=== PATIENT | male | born 1955 | race Caucasian/White ===

== ENCOUNTER 2018-01-23 05:49 | Inpatient (IN) | payer OTHER ==
[2018-01-18 12:55] LABS: URINE BILIRUBIN NEGATIVE (Negative); URINE BLOOD NEGATIVE (Negative); URINE CLARITY CLEAR; URINE COLOR YELLOW; URINE GLUCOSE-RANDOM* NEGATIVE (Negative); URINE KETONES NEGATIVE (Negative); URINE LEUKOCYTES-REFLEX NEGATIVE (Negative); URINE NITRITE-REFLEX NEGATIVE (Negative); URINE PROTEIN (DIPSTICK) NEGATIVE (Negative); URINE UROBILINOGEN 0.2 E.U./dl (0.2-1.0)
[2018-01-18 12:56] LABS: HEMATOCRIT 44.9 % (42.0-52.0); HEMOGLOBIN 15.5 gm/dL (14.0-18.0); MCH 34.9 pg (26.0-34.0); MCHC 34.5 g/dL (28.0-37.0); MCV 101.1 fL (80.0-100.0); RBC 4.44 mil/uL (4.50-6.00); RDW 12.8 % (10.5-14.5); WBC 6.6 thou/uL (4.0-11.0)
[2018-01-18 13:15] LABS: ALBUMIN 2.8 g/dL (3.4-5.0); CALCIUM 9.2 mg/dL (8.5-10.1); CREATININE 0.8 mg/dL (0.7-1.3); INR 1.2; POTASSIUM 4.1 mmol/L (3.5-5.1)
[2018-01-23] VITALS (10 sets, daily range): BP systolic 129–176; BP diastolic 56–88
[~2018-01-23] VITALS: Ht 180.3 cm; Wt 129.0 kg
--- NOTE | ~2018-01-23 | O ---
[facility] [place] [address] OPERATIVE REPORT Name: MIKAELA ANAYA Room #: 453-P [facility] IN M.R.#: [id number] Admission: 01/23/18 Attend Phys: Emmanuel Raymond MD Discharge: Date of : 53 Report #: [id number] THIS REPORT FOR: //name// CC: Emmanuel Sutton DATE OF SERVICE: 01/23/2018 PREOPERATIVE DIAGNOSIS: End-stage degenerative osteoarthritis, left knee. POSTOPERATIVE DIAGNOSIS: End-stage degenerative osteoarthritis, left knee. PROCEDURE: Left total knee arthroplasty. SURGEON: Emmanuel Raymond MD INDICATIONS: This heavy deconditioned 62-year-old gentleman has problems with progressive degenerative osteoarthritis of the left knee. He has tried conservative measure without benefit. He has elected to go ahead with left total knee arthroplasty. He and his understand well that he is at some increased risk given his weight, deconditioned state and excessive alcohol use. He has been cleared by his primary care physician and seems to be an acceptable candidate for surgery despite these comorbidity problems. DESCRIPTION OF PROCEDURE: The patient was taken to the Operating Room where he was placed under general anesthesia. Prophylactic intravenous antibiotics were administered. The left knee and leg were meticulously prepped and draped and a thigh tourniquet applied and inflated to 300 mmHg. An anterior longitudinal skin incision was made and carried through the medial retinaculum. The patella was reflected laterally. Marked degenerative change in all 3 compartments was noted. The Lugo and Nephew knee system was utilized and intramedullary guides were used on both the femur and the tibia. The femur was best suited for a size 6 left femoral component and the tibia also for a size 6 tibial baseplate. Appropriate cuts were made to correct his mild preoperative flexion contracture. The patellar surface was resected and a 38 mm patellar button seemed to fit most appropriately. Appropriate anchor holes were created. The knee was reduced and a 10 mm polyethylene insert fit nicely resulting in full knee extension and good stability throughout a full arc of motion. The trial components were removed. The surfaces were thoroughly irrigated and dried. The intramedullary canal was blocked with a bone block on both the femoral and tibial sides. Methyl methacrylate cement was mixed and injected into the porous surface of the proximal tibia. The Lugo and Nephew size 6 Fay II left tibial baseplate was then applied. It was impacted into position and seated nicely. Excess cement was removed around its margin. A 10 mm polyethylene cruciate retaining Legion liner was then inserted. This was snapped into position and seated nicely and appeared to be secure. A size [address] [address] OPERATIVE REPORT Name: MIKAELA ANAYA A Room #: 453-P [facility] IN .R.#: [id number] Admission: 01/23/18 Attend Phys: Emmanuel Raymond MD Discharge: Date of : 53 Report #: [id number] cruciate retaining femoral component was impacted on the distal femur. It seated nicely and appeared to be secure. A 38 mm patellar button was cemented onto the patella with appropriate anchor holes. A patellar clamp was used until the cement had hardened. Alignment, range of motion and stability were assessed and felt to be satisfactory. The tourniquet was deflated after a total tourniquet time of 62 minutes. A single Hemovac was left in the wound exiting through a separate stab incision. The fascia was closed with multiple #1 Vicryl sutures. The subcutaneous tissues were closed with 0 Monocryl. The skin was closed with skin corona. A sterile dressing was applied. The patient was awakened and returned to Recovery Room in good condition. <ELECTRONICALLY SIGNED> By: Emmanuel Raymond MD 01/24/18 [id number] Emmanuel Raymond MD /nt
--- NOTE | ~2018-01-23 | D ---
[facility] [place] [address] DISCHARGE SUMMARY Name: MIKAELA ANAYA Room #: 224-P [facility] IN M.R.#: [id number] Admission: 01/23/18 Attend Phys: Emmanuel Raymond MD Discharge: 01/26/18 Date of : 53 Report #: [id number] THIS REPORT FOR: //name// CC: Emmanuel Sutton FINAL DIAGNOSIS: End-stage degenerative osteoarthritis, left knee. OPERATIONS AND PROCEDURES: Left total knee arthroplasty. HISTORY OF PRESENT ILLNESS: This 62-year-old heavy gentleman has severe left knee pain with findings consistent with severe chronic degenerative osteoarthritis. He has elected to go ahead with left total knee arthroplasty. HOSPITAL COURSE: The patient was admitted and taken to the operating room on 01/23/2018, he underwent left total knee arthroplasty, which he tolerated well. Postoperatively, his course was largely unremarkable. He was advanced from IV analgesics to oral analgesics. He advanced to regular diet. He did well with physical therapy and is now independent with ambulation. The dressing is dry and the wound appears to be healing nicely. He seems safe and ready for discharge on 01/26/2018. His final discharge medication include losartan 50 mg daily, Bystolic 10 mg daily, Pravachol 40 mg daily, hydrocodone 7.5/325 one q.4 hours p.r.n. for pain and aspirin 81 mg daily. He will continue independent exercise at home and begin outpatient therapy next week. I have asked him to call if any problems or questions and I will otherwise see him back in my office in 2 weeks for followup and suture removal. <ELECTRONICALLY SIGNED> By: Emmanuel Raymond MD 01/31/18 1412 1750 1814 Emmanuel Raymond MD /nt
[~2018-01-23 05:49] MED LIST: ACETAMINOPHEN-1 EAC1 PO; BYSTOLIC10 MG PO; LOSARTAN POTASS50 MG PO; PRAVACHOL40 MG PO; VOLTAREN GEL 1100 G1
[2018-01-24 04:23] LABS: HEMATOCRIT 39.9 % (42.0-52.0); HEMOGLOBIN 13.5 gm/dL (14.0-18.0); MCH 34.6 pg (26.0-34.0); MCHC 33.9 g/dL (28.0-37.0); MCV 102.2 fL (80.0-100.0); PLATELET COUNT 72 thou/uL (150-400); WBC 10.9 thou/uL (4.0-11.0)
[2018-01-24 04:36] LABS: CALCIUM 7.8 mg/dL (8.5-10.1); CREATININE 0.8 mg/dL (0.7-1.3); MAGNESIUM 1.3 mg/dL (1.8-2.4); POTASSIUM 3.9 mmol/L (3.5-5.1)
[2018-01-24 04:50] VITALS: BP 127/47
[2018-01-24 07:20] VITALS: BP 134/46
[2018-01-24 07:24] LABS: ABSOLUTE NEUTROPHILS 8.9 thou/uL (1.4-8.2); ANISOCYTOSIS SLIGHT
[2018-01-24 19:51] VITALS: BP 124/61
[2018-01-25 06:21] LABS: HEMOGLOBIN 12.9 gm/dL (14.0-18.0); MCH 35.8 pg (26.0-34.0); MCHC 34.9 g/dL (28.0-37.0); MCV 102.7 fL (80.0-100.0); RBC 3.6 mil/uL (4.50-6.00); RDW 12.9 % (10.5-14.5); WBC 9.6 thou/uL (4.0-11.0)
[2018-01-25 08:32] VITALS: BP 130/63; BP 172/68
[2018-01-25 16:02] VITALS: BP 131/51
[2018-01-25 19:54] VITALS: BP 130/78
[2018-01-26 07:37] LABS: HEMATOCRIT 35.8 % (42.0-52.0); HEMOGLOBIN 12.4 gm/dL (14.0-18.0); MCH 35.7 pg (26.0-34.0); MCHC 34.7 g/dL (28.0-37.0); MCV 102.8 fL (80.0-100.0); RBC 3.49 mil/uL (4.50-6.00); RDW 12.9 % (10.5-14.5); WBC 8.5 thou/uL (4.0-11.0)
[2018-01-26 07:40] VITALS: BP 124/52
== END 2018-01-26 13:09 | disposition home or self-care (01) | DRG 470 ==
LOC: 4W 05:49 → TBA 05:49 → PRE 05:50 → 4W 09:38 → PRE 12:21 → EDSTATUS 15:35 → OR 15:35 → PRE 15:41 → SICU 01-25 18:46 → ENTRNSPT 01-26 11:31 → EDTRNSPTSTS 01-26 11:36 → SICU 01-26 13:09
PROVIDERS: Nurse Practitioner; Orthopaedic Surgery
PROC: 0SRD0J9 Replacement of Left Knee Joint with Synthetic Substitute, Cemented, Open Approach (ICD-10-PCS; principal; 2018-01-23)
DX: M17.12 Unilateral primary osteoarthritis, left knee (principal); I10 Essential (primary) hypertension; D69.6 Thrombocytopenia, unspecified; E78.5 Hyperlipidemia, unspecified; Z79.899 Other long term (current) drug therapy; Z71.6 Tobacco abuse counseling
CPT/HCPCS: 10047; 15002; 50010; 50101; 50415; 50954; 51130; 51225; 51412; 51771; 53364; 56525; 57104; 57180; 62110; 62900; 70005

== ENCOUNTER → 2018-05-25 | Outpatient (CLI) | payer OTHER ==
[~2018-05-25] MED LIST changes: +NORCO 5-325 TA1 EACH PO
== END ==
LOC: RAD 11:35
DX: M47.26 Other spondylosis with radiculopathy, lumbar region (principal)

== ENCOUNTER 2018-05-27 14:42 | Emergency (ER) | payer OTHER ==
[~2018-05-27] VITALS: Ht 182.9 cm; Wt 99.8 kg
[~2018-05-27 14:42] MED LIST changes: -NORCO 5-325 TA1 EACH PO
[2018-05-27 14:47] VITALS: BP 168/65
[2018-05-27] MEDS ORDERED: NORCO 5-325 TA1 EACH PO (16:09)
== END 2018-05-27 16:22 | disposition home or self-care (01) ==
LOC: ER 14:42
DX: M54.16 Radiculopathy, lumbar region (principal); I10 Essential (primary) hypertension; E78.00 Pure hypercholesterolemia, unspecified; F17.210 Nicotine dependence, cigarettes, uncomplicated

== ENCOUNTER → 2018-05-31 | Outpatient (CLI) | payer OTHER ==
[~2018-05-31] MED LIST changes: +NORCO 5-325 TA1 EACH PO
== END ==
LOC: MRI 09:16
DX: M47.816 Spondylosis without myelopathy or radiculopathy, lumbar region (principal); M48.061 Spinal stenosis, lumbar region without neurogenic claudication; M79.605 Pain in left leg; I10 Essential (primary) hypertension; E78.5 Hyperlipidemia, unspecified; R20.0 Anesthesia of skin

== ENCOUNTER → 2018-06-06 | Outpatient (CLI) | payer OTHER ==
[~2018-06-06] VITALS: Ht 180.3 cm; Wt 124.7 kg
[~2018-06-06] MED LIST changes: +DICLOFENAC SOD100 GM TOP; +FLEXERIL PO; +FLOMAX0.4 MG PO; +NORCO 7.5-3251 EACH PO; +PREDNISONE 20 M20 MG PO; +TRAMADOL 50 MG50 MG PO; +TRAZODONE HCL50 MG PO
[2018-06-06 13:32] VITALS: BP 162/86
--- NOTE | 2018-06-06 13:52 | NUR ---
Pain Clinic Assessment: 1. History of Osteoarthritis: SPINE History of Rheumatoid Arthritis: Not Applicable 2. Height: 5 ft. 11 in. 180.3 cm. Weight: 275.0 lb. oz. 124.740 kg. Patient's BMI: 38.4 3. Vital Signs: BP: 162/86 Pulse: 56 Resp: 16 Temp: 02 Sat: 97 ECG Mon: 4. Pain Intensity: 10 5. Fall Risk: Dizziness: N Needs help standing or walking: Y Fallen in the last 3 months: N Fall risk comments: 6. Patient on Blood Thinner: None 7. History of Hypertension: Y 8. Opioid Therapy greater than 6 weeks: Y Opiate Contract Signed: 9. Risk Assessment Tool Provided: 10. Functional Assessment Tool: 59/70 11. Recreational Drug Use: Never Drug Type: Tobacco Use: Current Every Day Smoker Tobacco Type: Cigarettes Amount or Packs/day: 1 pack How Many Years: 8 Alcohol Use: Yes Frequency: Daily Quant: 3
--- NOTE | 2018-06-13 07:34 | HPC ---
[facility] [address] [place] [address] PAIN MANAGEMENT CONSULTATION Name: MIKAELA ANAYA A Room #: REG [facility]#: [id number] Admission: 06/06/18 ������������������ Attend Phys: Anibal Hamilton DO Discharge: ������������������ Date of : 53 Report #: [id number] THIS REPORT FOR: //name// CC: Anibal CORONA DATE OF SERVICE: 06/06/2018 REFERRING PHYSICIAN: CJ Moreno. CHIEF COMPLAINT: Low back pain and left lower extremity pain with paresthesias. HISTORY OF PRESENT ILLNESS: As you know, the patient is a 62-year-old male who reports a 2-week history of increasing low back pain, left lower extremity pain with paresthesias. He describes this pain as "debilitating." He sought evaluation through his primary care team who ultimately sent the patient for MRI of the lumbar spine. Findings were such that the patient was then referred to our clinic. He indicates that pain began spontaneously without inciting injury or trauma and has progressively worsened to the point where he can barely go about any activity of daily living. The patient indicates today his pain is continuous, describes the pain as shooting, numbness and tingling. Places current pain score 10/10, daily average at 10/10, worst the pain has been is 10/10. The patient indicates pain is exacerbated with "trying to walk." He states that his pain is improved with sitting. He has been referred to our service to discuss treatment options for suspected lumbar radiculopathy. PAST MEDICAL HISTORY: 1. Hypertension. 2. Osteoarthritis. 3. Tobacco habituation. PAST SURGICAL HISTORY: Total knee arthroplasty. SOCIAL HISTORY: The patient smokes 1-1/2 packs of tobacco per day. He has done so for greater than 10 years. He denies IV or illicit drug use. He admits to 30+ beer per week. He reports he is retired. He is not receiving workmen's compensation nor is he trying to obtain disability benefits. He is not in litigation in regards to pain. He is accompanied by his family member present in room today. REVIEW OF SYSTEMS: Positive for night sweats, fatigue, weakness, headaches, hypertension and tobacco habituation. All other review of systems negative per 12-point review of systems other than those listed in history of present [address] [address] PAIN MANAGEMENT CONSULTATION Name: MIKAELA ANAYA [facility] [id number] Admission: 06/06/18 ������������������ Attend Phys: Anibal Hamilton DO Discharge: ������������������ Date of : 53 Report #: [id number] illness. PAIN SCORE: Pain impact score 49/70 indicating [id number] interference of daily activities secondary to pain. ALLERGIES: No known drug allergies. CURRENT MEDICATIONS: Hydrocodone 7.5/325 one tab every 8 hours p.r.n. for pain, diclofenac sodium 1% gel apply topically up to 4 times a day, cyclobenzaprine 10 mg t.i.d., trazodone 50 mg 2 tabs p.o. at bedtime, tramadol 50 mg every 4 hours p.r.n. for pain, tamsulosin 0.4 mg once a day, prednisone 20 mg once a day, pravastatin 40 mg per day, Bystolic 10 mg per day, losartan 50 mg per day and Advil 600 mg b.i.d. IMAGING DATA: MRI lumbar spine obtained on 05/31/2018 shows L1-L2 relatively unremarkable. L2-L3, generalized disk bulge, moderate posterior facet degenerative changes and no significant central canal stenosis and no significant neural foraminal stenosis. L3-L4, generalized disk bulge, midline. There is posterior disk changes consistent with annular tear, moderate hypertrophic changes, mild bilateral neural foraminal stenosis and no central canal stenosis. L4-L5, generalized disk bulge, slightly more eccentric to the left, severe hypertrophic facet degenerative changes and ligamentum flavum hypertrophy, left greater than right. The AP diameter of the thecal sac is narrowed to 6 mm consistent with severe central canal stenosis. There is left greater than right severe bilateral neural foraminal narrowing. There is noted a cystic lesion in the area 1.6 x 0.5 x 0.8 cm causing compression of the cord. Unable to tell on the MRI whether or not the cystic formation arises from the left or right posterior facet joint. PHYSICAL EXAMINATION: VITAL SIGNS: Blood pressure 162/86, pulse is 56 and respiratory rate 16 and unlabored. The patient is 97% on room air. Height 5 feet 11 inches tall, weight 275 pounds and BMI calculated 38.4. GENERAL: Well-developed, well-nourished and well-hydrated exogenously obese 62-year-old male. He appears older than stated age, smells strongly of tobacco smoke, placing current pain score at 10/10. HEENT: Normocephalic and atraumatic. Pupils equal, round and reactive to light. Extraocular muscles are intact. Sclerae nonicteric without injection. NEUROLOGICAL: Cranial nerves 2 through 12 grossly intact. Speech is fluent. The patient deemed a good historian. LUNGS: Decreased breath sounds bilaterally, prolonged expiratory phase. CARDIOVASCULAR: Regular. No appreciable gallop and no rub. ABDOMEN: Soft and obese. Bowel sounds are present. EXTREMITIES: Show no clubbing, no cyanosis and no edema. MUSCULOSKELETAL: Lower extremity strength is weakened on the left when compared to right. This is noted to be mainly due to pain generation. [facility] [address] [place] [address] PAIN MANAGEMENT CONSULTATION Name: MIKAELA ANAYA A [id number] Admission: 06/06/18 ������������������ Attend Phys: Anibal Hamilton DO Discharge: ������������������ Date of : 53 Report #: [id number] tone is symmetrical when comparing left lower extremity over right. There is mild deconditioning noted bilaterally. Deep tendon reflexes are symmetrical but diminished, 1+/4 at the patella and Achilles. Ankle clonus negative. Babinski is negative. Gait is extremely antalgic favoring left lower extremity over right. Seated straight leg raising positive left. Supine straight leg raising positive left. Irwin's test negative. Modified Gaenslen's positive for axial low back pain. ASSESSMENT: 1. Lumbar radiculopathy. 2. Severe spinal stenosis of lumbar spine. 3. Displacement of lumbar intervertebral disk with radiculopathy. 4. Lumbosacral spondylosis with radiculopathy. 5. Neural foraminal stenosis of the lumbar spine. 6. Facet arthropathy of the lumbar spine. 7. Lumbar degeneration. 8. Chronic intractable pain. PLAN: 1. The patient has been referred to our service for evaluation for suspected lumbar radiculopathy. Based on his physical exam, the history he provides the description he uses in regards to pain as well as the findings of his MRI, I concur with the diagnosis of lumbar radiculopathy. The patient's lumbar radicular symptoms are related to the findings at the L4-L5 level with severe facet arthropathy, ligamentum flavum hypertrophy and this large synovial cyst causing mass effect upon the cord, reducing his canal from approximately 1.5 cm down to 6 mm. This appears to be the source of the patient's pain and does correlate with the findings on physical exam and the distribution of symptoms, he is reporting. We discussed with the patient the following treatment options for lumbar radiculopathy. We discussed physical therapy, stretching exercises, core strengthening as a treatment option. This will provide some improvement in symptoms but will not make any changes in the stenotic area of the lumbar spine. We discussed medication management to control symptoms of neuropathy with neuropathic pain medication and consistent nonsteroidal anti-inflammatory, but again this will cause no change in the stenotic area at this L4-L5 level. We discussed lumbar epidural injection under fluoroscopic guidance, which will provide improvement in symptoms and again will not provide changes in the lumbar spine to address the multifactorial spinal stenosis but could improve symptoms on a temporary basis. We discussed spinal cord stimulator therapy and ultimately surgical options such as fenestration of the synovial cyst or possible ablation of the synovial cyst versus surgical excision of the cyst and fusion of the L4-L5 level with decompression. After reviewing the risks and benefits of all the proposed treatment options, the patient chose to move forward with Interventional Radiology fenestration/ablation of the synovial cyst. [address] [address] PAIN MANAGEMENT CONSULTATION Name: MIKAELA ANAYA Room #: REG [facility]#: [id number] Admission: 06/06/18 ������������������ Attend Phys: Anibal Hamilton DO Discharge: ������������������ Date of : 53 Report #: [id number] 2. We have taken the liberty of referring the patient to our Interventional Radiology Department here at [facility]. We have requested the patient undergo CT fenestration/ablation of the synovial cyst at the L4-L5 level. This appears based on the imaging study as well as the official read to be the source of the stenotic lesioning, fenestration of this should provide the patient with improvement in symptoms. He will ultimately need to have this synovial cyst removed based on recurrence of a cystic formations without full excision of the synovial sac, but this will initially give the patient time to return to normal activities and be able to further be evaluated from a neurosurgical standpoint for possible surgical options. We have sent the patient for fenestrations/ablation of the synovial cyst at his earliest convenience. 3. The patient will have to undergo laboratory draw for BUN and creatinine levels. This is part of the initial workup for the CT examination as they will be using contrast agent during the procedure. This order was written for the patient as well. 4. We discussed possibility of starting the patient on medication. At present, he wishes to move forward with the fenestration/ablation of the synovial cyst. If this is ineffective, medication management may be necessary to control symptoms as the patient further workup for surgical decompression. We will discuss this after the patient has undergone the fenestration/ablation of the synovial cyst. 5. We wish to thank nurse practitioner, Yanci Sutton for the referral of the patient to our clinic. We will keep you apprised of his response to treatment as we move forward with fenestration/ablation of the synovial cyst. If this is ineffective, we will adjust his medications as necessary and we will provide him a referral to Neurosurgery for more definitive decompression of surgical technique. Again, we wish to thank you for having to see this patient in consultation. ��������������������������������������������� <ELECTRONICALLY SIGNED> ���������������������������������������� By: Anibal Hamilton DO ��������������������������������������������� 06/13/18 0734 0811 1149 Anibal Hamilton DO /nt
== END ==
LOC: PAIN 06:59
DX: M51.16 Intervertebral disc disorders with radiculopathy, lumbar region (principal); M48.062 Spinal stenosis, lumbar region with neurogenic claudication; M47.27 Other spondylosis with radiculopathy, lumbosacral region; I10 Essential (primary) hypertension; M19.90 Unspecified osteoarthritis, unspecified site; F17.210 Nicotine dependence, cigarettes, uncomplicated; Z79.899 Other long term (current) drug therapy

== ENCOUNTER → 2020-08-19 | Outpatient (CLI) | payer OTHER | LOC: CAT 14:54 | PROVIDERS: ATTEND Internal Medicine Cardiovascular Disease | DX: I25.10 Atherosclerotic heart disease of native coronary artery without angina pectoris (principal); E78.00 Pure hypercholesterolemia, unspecified ==

== ENCOUNTER → 2021-02-26 | Outpatient (CLI) | payer OTHER | LOC: HYPER 09:41 | PROVIDERS: ATTEND Emergency Medicine | DX: I70.238 Atherosclerosis of native arteries of right leg with ulceration of other part of lower leg (principal); L97.812 Non-pressure chronic ulcer of other part of right lower leg with fat layer exposed; L03.115 Cellulitis of right lower limb; R60.0 Localized edema; E78.5 Hyperlipidemia, unspecified; I10 Essential (primary) hypertension; M48.00 Spinal stenosis, site unspecified; M17.12 Unilateral primary osteoarthritis, left knee; E66.01 Morbid (severe) obesity due to excess calories; F17.290 Nicotine dependence, other tobacco product, uncomplicated; Z68.37 Body mass index [BMI] 37.0-37.9, adult; Z87.01 Personal history of pneumonia (recurrent); Z98.890 Other specified postprocedural states; Z79.899 Other long term (current) drug therapy ==

== ENCOUNTER → 2021-03-05 | Outpatient (CLI) | payer OTHER | LOC: HYPER 09:27 | PROVIDERS: ATTEND Emergency Medicine | DX: I70.238 Atherosclerosis of native arteries of right leg with ulceration of other part of lower leg (principal); L97.812 Non-pressure chronic ulcer of other part of right lower leg with fat layer exposed; L03.115 Cellulitis of right lower limb; R60.0 Localized edema; E78.5 Hyperlipidemia, unspecified; I10 Essential (primary) hypertension; M48.00 Spinal stenosis, site unspecified; M17.12 Unilateral primary osteoarthritis, left knee; E66.01 Morbid (severe) obesity due to excess calories; F17.290 Nicotine dependence, other tobacco product, uncomplicated; Z68.37 Body mass index [BMI] 37.0-37.9, adult; Z87.01 Personal history of pneumonia (recurrent) ==

== ENCOUNTER → 2021-03-20 | Outpatient (CLI) | payer OTHER | LOC: HYPER 10:15 | PROVIDERS: ATTEND Emergency Medicine | DX: I70.238 Atherosclerosis of native arteries of right leg with ulceration of other part of lower leg (principal); L97.812 Non-pressure chronic ulcer of other part of right lower leg with fat layer exposed; L03.115 Cellulitis of right lower limb; R60.0 Localized edema; E78.5 Hyperlipidemia, unspecified; I10 Essential (primary) hypertension; M48.00 Spinal stenosis, site unspecified; M17.12 Unilateral primary osteoarthritis, left knee; E66.01 Morbid (severe) obesity due to excess calories; F17.200 Nicotine dependence, unspecified, uncomplicated; Z68.37 Body mass index [BMI] 37.0-37.9, adult; Z79.899 Other long term (current) drug therapy; Z87.01 Personal history of pneumonia (recurrent) ==

== ENCOUNTER → 2021-03-26 | Outpatient (CLI) | payer OTHER | LOC: HYPER 09:55 | PROVIDERS: ATTEND Emergency Medicine | DX: L97.812 Non-pressure chronic ulcer of other part of right lower leg with fat layer exposed (principal); L03.115 Cellulitis of right lower limb; R60.0 Localized edema; E78.5 Hyperlipidemia, unspecified; I10 Essential (primary) hypertension; M48.00 Spinal stenosis, site unspecified; E66.01 Morbid (severe) obesity due to excess calories; M17.12 Unilateral primary osteoarthritis, left knee; F17.290 Nicotine dependence, other tobacco product, uncomplicated; Z68.37 Body mass index [BMI] 37.0-37.9, adult; Z87.01 Personal history of pneumonia (recurrent); Z79.899 Other long term (current) drug therapy ==

== ENCOUNTER → 2021-04-02 | Outpatient (CLI) | payer OTHER | LOC: HYPER 09:56 | PROVIDERS: ATTEND Emergency Medicine | DX: I70.238 Atherosclerosis of native arteries of right leg with ulceration of other part of lower leg (principal); L97.812 Non-pressure chronic ulcer of other part of right lower leg with fat layer exposed; L03.115 Cellulitis of right lower limb; R60.0 Localized edema; E78.5 Hyperlipidemia, unspecified; I10 Essential (primary) hypertension; M48.00 Spinal stenosis, site unspecified; E66.01 Morbid (severe) obesity due to excess calories; M17.12 Unilateral primary osteoarthritis, left knee; F17.290 Nicotine dependence, other tobacco product, uncomplicated; Z68.37 Body mass index [BMI] 37.0-37.9, adult; Z87.01 Personal history of pneumonia (recurrent); Z79.899 Other long term (current) drug therapy ==

== ENCOUNTER → 2021-04-16 | Outpatient (CLI) | payer OTHER | LOC: HYPER 10:51 | PROVIDERS: ATTEND Emergency Medicine | DX: I70.238 Atherosclerosis of native arteries of right leg with ulceration of other part of lower leg (principal); L97.812 Non-pressure chronic ulcer of other part of right lower leg with fat layer exposed; L03.115 Cellulitis of right lower limb; R60.0 Localized edema; E78.5 Hyperlipidemia, unspecified; I10 Essential (primary) hypertension; I87.2 Venous insufficiency (chronic) (peripheral); M48.00 Spinal stenosis, site unspecified; E66.01 Morbid (severe) obesity due to excess calories; K74.60 Unspecified cirrhosis of liver; M17.12 Unilateral primary osteoarthritis, left knee; F17.290 Nicotine dependence, other tobacco product, uncomplicated; Z68.37 Body mass index [BMI] 37.0-37.9, adult; Z87.01 Personal history of pneumonia (recurrent) ==